=== PATIENT | female | born 1990 | race African-American/Black ===

== ENCOUNTER 2019-11-12 15:26 | Emergency (ER) | payer SELFPAY ==
[~2019-11-12] VITALS: Ht 167.6 cm; Wt 93.9 kg
[2019-11-12 16:04] VITALS: BP_SYST 121
--- NOTE | 2019-11-12 16:04 | NUR ---
Patient to ER bed 02 to gown for evaluation. Side rails up. Report given to SPENCER Murillo
--- NOTE | 2019-11-12 16:52 | NUR ---
MD FIGUEROA AT BEDSIDE EXAMINING PT.
[2019-11-12 17:34] LABS: BASOPHILS # (AUTO) 0.1 K/uL (0.0-0.2); BASOPHILS % (AUTO) 0.7 % (0.0-2.0); EOSINOPHILS # (AUTO) 1.2 K/uL (0.0-0.4); EOSINOPHILS % (AUTO) 14.3 % (0.0-4.0); HEMATOCRIT 31.7 % (36-48); HEMOGLOBIN 9.9 g/dL (12.0-16.0); LYMPHOCYTES # (AUTO) 1.9 K/uL (1.0-5.5); LYMPHOCYTES % (AUTO) 22.5 % (20.5-51.5); MEAN CORPUSCULAR HEMOGLOBIN 22 pg (27-31); MEAN CORPUSCULAR HGB CONC 31 % (32-36); MEAN CORPUSCULAR VOLUME 69 fL (79.0-98.0); MONOCYTES # (AUTO) 0.7 K/uL (0.0-1.0); MONOCYTES % (AUTO) 7.9 % (1.7-9.3); NEUTROPHILS # (AUTO) 4.6 K/uL (1.8-7.7); NEUTROPHILS % (AUTO) 54.6 % (40.0-70.0); PLATELET COUNT (AUTO) 381 K/uL (130-430); RED BLOOD CELL COUNT(AUTO) 4.59 MIL/uL (4.2-6.2); RED CELL DISTRIBUTION WIDTH 20.7 % (9.0-15.0); WHITE BLOOD COUNT (AUTO) 8.4 K/uL (4.8-10.8)
--- NOTE | 2019-11-12 17:38 | NUR ---
IV ACCESS INTO THE LEFT AC IN ONE ATTEMPT. PT HAS TRACK SCARS ON LEFT HAND AND STATED SHE HAS SCARRED AC. RN WAS ABLE TO GET BLOOD RETURN WITH 22G. NO PAIN MED ORDERED AT THIS TIME.
[2019-11-12 17:42] LABS: CALCIUM 8.8 mg/dL (8.4-11.0); CREATININE 0.95 mg/dL (0.55-1.30)
[2019-11-12 17:43] LABS: POTASSIUM 4.7 mmol/L (3.5-5.1)
[2019-11-12 17:50] LABS: BILIRUBIN,URINE NEGATIVE (NEGATIVE); BLOOD, URINE NEGATIVE (NEGATIVE); CLARITY/URINE CLEAR (CLEAR); COLOR,URINE YELLOW (YELLOW); GLUCOSE,URINE NEGATIVE (NEGATIVE); KETONES,URINE NEGATIVE (NEGATIVE); LEUKOCYTE ESTERASE ,URINE NEGATIVE (NEGATIVE); NITRITE, URINE NEGATIVE (NEGATIVE); PROTEIN URINE NEGATIVE (NEGATIVE)
[2019-11-12 17:54] LABS: ALBUMIN 3.5 g/dL (3.4-4.8); TOTAL BILIRUBIN 0.2 mg/dL (0.0-1.0)
[2019-11-12] MEDS ORDERED: fentaNYL CITRATE/PF 100 MCG/2 ML AMP IVP ONE (18:00)
[2019-11-12] MEDS ORDERED: ONDANSETRON HCL 4 MG/2 ML VIAL IVP ONE (18:00)
[2019-11-12 18:10] LABS: OPIATE, URINE POSITIVE (NEG <=100)
[2019-11-12 18:11] LABS: BARBITURATE, URINE NEGATIVE (NEG <=200); BENZODIAZEPINE, URINE NEGATIVE (NEG <=150); CANNABINOID, URINE NEGATIVE (NEG <=50); COCAINE, URINE NEGATIVE (NEG <=150); METHAMPHETAMINES SCREEN,URINE NEGATIVE (NEG <=500); PHENCYCLIDINE SCREEN,URINE NEGATIVE (NEG <=25); UR TRICYCLIC ANTIDEPRESSANTS NEGATIVE (NEG <=300); URINE AMPHETAMINE NEGATIVE (NEG <=500); URINE METHADONE NEGATIVE (NEG <=200); URINE OXYCODONE SCREEN NEGATIVE (NEG <=100); URINE PROPOXYPHENE SCREEN NEGATIVE (NEG <=300)
--- NOTE | 2019-11-12 19:07 | NUR ---
PT STATES SHE IS FEELING BETTER AND PAIN IS AT A 1/10 AFTER 45 MINUTES AFTER HER PAIN MEDICATION. MD IS TALKING TO HER NOW AND MAY DC HOME.
[2019-11-12 19:22] VITALS: BP_SYST 121
== END 2019-11-12 19:23 | disposition home or self-care (01) ==
LOC: SED 15:26
DX: D57.80 Other sickle-cell disorders without crisis (principal); Z90.49 Acquired absence of other specified parts of digestive tract; Z88.0 Allergy status to penicillin; Z88.1 Allergy status to other antibiotic agents; Z88.6 Allergy status to analgesic agent
CPT/HCPCS: 36415; 80053; 80307; 81003; 83615; 85025; 96374; 96375; 99284; J2405; J3010